=== PATIENT | female | born 1985 | race African-American/Black ===

== ENCOUNTER 2020-08-31 14:47 | Emergency (ER) | payer MEDICAID ==
[~2020-08-31] VITALS: Ht 172.7 cm; Wt 86.2 kg
[2020-08-31 15:00] VITALS: Ht 172.7 cm; Wt 86.2 kg
[2020-08-31 18:25] VITALS: BP 132/82
== END 2020-08-31 18:05 | disposition home or self-care (01) ==
LOC: ED 14:47
DX: S82.891A Other fracture of right lower leg, initial encounter for closed fracture (principal); S01.511A Laceration without foreign body of lip, initial encounter; Y04.8XXA Assault by other bodily force, initial encounter; Y93.89 Activity, other specified; Y92.89 Other specified places as the place of occurrence of the external cause; Y99.8 Other external cause status
CPT/HCPCS: 90715; J2001; Q0092